=== PATIENT | female | born 1990 | race Two or more races ===

== ENCOUNTER 2018-07-13 15:14 | Emergency (ER) | payer MEDICAID, OTHER ==
[~2018-07-13] VITALS: Ht 152.4 cm; Wt 49.9 kg
[2018-07-13 15:55] VITALS: BP 129/76
== END 2018-07-13 16:49 | disposition home or self-care (01) ==
LOC: ER 15:14
DX: H00.021 Hordeolum internum right upper eyelid (principal)

== ENCOUNTER 2018-11-09 12:20 | Emergency (ER) | payer SELFPAY ==
[~2018-11-09] VITALS: Ht 160 cm; Wt 48.1 kg
[2018-11-09 12:46] VITALS: BP 142/97
[2018-11-09] MEDS ORDERED: ACETAMINOPHEN 500 MG TAB PO ONE (15:30)
[2018-11-09 15:36] LABS: Urine Bacteria FEW /hpf (None Seen); Urine Blood Negative /uL (Negative); Urine Specific Gravity 1.005 (1.001-1.035); Urine WBC 2 /hpf (0 - 5)
== END 2018-11-09 16:13 | disposition home or self-care (01) ==
LOC: ER 12:22
DX: R51 Headache (principal)
CPT/HCPCS: 70450; 81001; 82962